=== PATIENT | female | born 1990 | race Caucasian/White ===

== ENCOUNTER → 2018-06-28 | Outpatient (CLI) | payer OTHER | LOC: LAB.O 09:47 | PROVIDERS: ATTEND Nurse Practitioner Family | DX: R06.00 Dyspnea, unspecified (principal) ==

== ENCOUNTER → 2018-07-22 | Outpatient (CLI) | payer OTHER | LOC: GMAH 17:44 | PROVIDERS: ATTEND Family Medicine | DX: W46.0XXA Contact with hypodermic needle, initial encounter (principal) ==

== ENCOUNTER → 2018-09-30 | Outpatient (CLI) | payer OTHER | LOC: GMAH 19:02 | PROVIDERS: ATTEND Family Medicine | DX: Z57.9 Occupational exposure to unspecified risk factor (principal); W46.0XXA Contact with hypodermic needle, initial encounter ==

== ENCOUNTER → 2020-09-22 | Outpatient (CLI) | payer OTHER | LOC: YCFC.O 17:01 | PROVIDERS: ATTEND Family Medicine | DX: Z20.828 Contact with and (suspected) exposure to other viral communicable diseases (principal) ==

== ENCOUNTER → 2020-09-28 | Outpatient (CLI) | payer OTHER | LOC: YCFC.O 12:16 | PROVIDERS: ATTEND Family Medicine | DX: Z20.828 Contact with and (suspected) exposure to other viral communicable diseases (principal) ==